=== PATIENT | female | born 1990 | race Caucasian/White ===

== ENCOUNTER 2017-12-19 19:06 | Emergency (ER) | payer BC ==
[2017-12-19 19:12] VITALS: BP 123/84
[2017-12-19] MEDS ORDERED: BENZONATATE 100 MG CAPSULE PO ONE (20:21)
--- NOTE | 2017-12-19 20:26 | ER Document Report ---
HPI - HPI Pain Level: 2 Context: Patient is a 27-year-old healthy female with history of seasonal allergies who presents to the emergency department complaining of sneezing, coughing, runny nose, sore throat 24 hours. No fever, shortness of breath or chest pain. No nausea or vomiting. Reports she is taking her prescribed allergy medications including Zyrtec and Flonase with no relief. Associated Symptoms: Nonproductive cough, Hoarseness Exacerbated by: Denies Relieved by: Denies Similar symptoms previously: Yes Recently seen / treated by doctor: No - ROS Systems Reviewed and Negative: Yes All other systems reviewed and negative - REPRODUCTIVE Reproductive: DENIES: : Past Medical History - General Information source: Patient - Social History Smoking Status: Never Smoker Frequency of alcohol use: Occasional Family History: Reviewed & Not Pertinent Patient has suicidal ideation: No Patient has homicidal ideation: No - Medical History Medical History: Other - Seasonal allergies Psychiatric Medical History: Reports: Hx Anxiety, Hx Depression Past Surgical History: Reports: Hx Oral Surgery - Immunizations Hx Diphtheria, Pertussis, Tetanus Vaccination: Yes Vertical Provider Document - CONSTITUTIONAL Agree With Documented VS: Yes Exam Limitations: No Limitations General Appearance: WD/WN, No Apparent Distress - INFECTION CONTROL TRAVEL OUTSIDE OF THE [place] IN LAST 30 DAYS: No COUNTRY TRAVELED TO/FROM: [facility] - [facility] HEENT: Atraumatic, PERRLA, Pharyngeal Tenderness, Pharyngeal Erythema. negative : Pharyngeal Exudate Notes: No trismus, drooling, muffled voice - NECK Neck: Normal Inspection, Supple - RESPIRATORY Respiratory: Breath Sounds Normal, No Respiratory Distress O2 Sat by Pulse Oximetry: 100 - CARDIOVASCULAR Cardiovascular: Regular Rate, Regular Rhythm - GI/ABDOMEN Gastrointestinal: Abdomen Soft, Abdomen Non-Tender - NEURO Level of Consciousness: Awake, Alert, Appropriate Course - Re-evaluation Re-evalutation: 12/19/17 20:25 History and physical are consistent with seasonal allergies and allergic rhinitis. There is no signs and symptoms of Jovi's angina, peritonsillar abscess, epiglottitis, respiratory distress, or sepsis. Recommend patient continue her antihistamines and I will treat cough symptomatically with Tessalon Perles. Patient agreeable with plan and stable for discharge - Vital Signs Vital signs: Temp Pulse Resp BP Pulse Ox 99.0 F 95 16 123/84 100 12/19/17 19:10 12/19/17 19:10 12/19/17 19:10 12/19/17 19:10 12/19/17 19:10 Discharge - Discharge Clinical Impression: Cough Allergic rhinitis Qualifiers: Allergic rhinitis trigger: pollen Allergic rhinitis seasonality: seasonal Qualified Code(s): J30.1 - Allergic rhinitis due to pollen Condition: Stable Disposition: HOME, SELF-CARE Instructions: Hay Fever ([facility]) Additional Instructions: Your symptoms are consistent with an exacerbation of your allergies. Continue with your current allergy medications as prescribed May add Sudafed to your current medications I am prescribing Tessalon Perles for your cough Lozenges and salt water gargles for symptomatic treatment of your sore throat Follow-up with your primary care for persistent symptoms or worsening of status Prescriptions: Benzonatate [Tessalon Perles 100 mg Capsule] 200 mg PO Q8HP PRN #40 capsule PRN Reason: Forms: Return to Work
== END 2017-12-19 20:20 | disposition home or self-care (01) ==
LOC: ER 19:06
DX: J30.1 Allergic rhinitis due to pollen (principal)
CPT/HCPCS: 99282

== ENCOUNTER 2017-12-22 10:58 | Emergency (ER) | payer BC ==
[2017-12-22] MEDS ORDERED: DEXAMETHASONE SOD PHOS INJ 10 MG/1 ML VIAL IM ONE (11:50)
--- NOTE | 2017-12-22 12:04 | ER Document Report ---
HPI - HPI Pain Level: 3 Notes: Patient is a 27-year-old female with a history of seasonal allergies who presents to the ED complaining of nasal congestion/discharge, postnasal drip, dry nonproductive cough 3 days. Patient was evaluated 2 days ago and was given Tessalon Perles and told to continue her seasonal allergy medications. Patient states that she has been using her medicines with no relief and continued symptoms. Patient requesting antibiotic. She denies any drug allergies. She still eating and drinking without difficulties. She is urinating normally having normal bowel movements. Denies any headache, fever, neck pain, sore throat, chest pain, palpitations, syncope, shortness of breath, wheeze, dyspnea, abdominal pain, nausea/vomiting/diarrhea, urinary retention, dysuria, hematuria, or rash. - ROS Systems Reviewed and Negative: Yes All other systems reviewed and negative - CONSTITUTIONAL Constitutional: DENIES: Fever, Chills - EENT EENT: REPORTS: Sore Throat. DENIES: Ear Pain, Eye problems - NEURO Neurology: DENIES: Headache, Weakness, Vision blurred, Dizzinesss / Vertigo - CARDIOVASCULAR Cardiovascular: DENIES: Chest pain - RESPIRATORY Respiratory: REPORTS: Coughing. DENIES: Trouble Breathing - GASTROINTESTINAL Gastrointestinal: DENIES: Abdominal Pain, Black / Bloody Stools - URINARY Urinary: DENIES: Dysuria, Urgency, Frequency - REPRODUCTIVE Reproductive: DENIES: : - MUSCULOSKELETAL Musculoskeletal: DENIES: Extremity pain Past Medical History - Social History Smoking Status: Unknown if Ever Smoked Chew tobacco use (# tins/day): No Frequency of alcohol use: Occasional Drug Abuse: None Family History: Reviewed & Not Pertinent Patient has suicidal ideation: No Patient has homicidal ideation: No Renal/ Medical History: Denies: Hx Peritoneal Dialysis Psychiatric Medical History: Reports: Hx Anxiety, Hx Depression Past Surgical History: Reports: Hx Oral Surgery - Immunizations Hx Diphtheria, Pertussis, Tetanus Vaccination: Yes Vertical Provider Document - CONSTITUTIONAL Agree With Documented VS: Yes Notes: PHYSICAL EXAMINATION: GENERAL: Well-appearing, well-nourished and in no acute distress. A&Ox4. Answers questions appropriately. Moves comfortably w/o notable distress HEAD: Atraumatic, normocephalic. EYES: Pupils equal round and reactive to light, extraocular movements intact, sclera anicteric, conjunctiva are normal. ENT: EAC clear b/l. TM's intact b/l without erythema, fluid, or perforation. Nares patent and with clear discharge. oropharynx no erythema without exudates. No tonsilar hypertrophy without erythema or exudate. No palatine shift. Uvula midline. No tongue protrusion. No drooling, hoarseness, or airway compromise. Moist mucous membranes. + mild sinus tenderness. NECK: Normal range of motion, supple without lymphadenopathy. No rigidity/ meningismus. LUNGS: Breath sounds clear to auscultation bilaterally and equal. No wheezes rales or rhonchi. No retractions HEART: Regular rate and rhythm without murmurs, rubs, gallops. NEUROLOGICAL: Normal speech, normal gait. Normal sensory, motor exams PSYCH: Normal mood, normal affect. SKIN: Warm, Dry, normal turgor, no rashes or lesions noted. - INFECTION CONTROL TRAVEL OUTSIDE OF THE [place] IN LAST 30 DAYS: No COUNTRY TRAVELED TO/FROM: [facility] - RESPIRATORY O2 Sat by Pulse Oximetry: 99 Course - Re-evaluation Re-evalutation: 12/22/17 12:01 Patient is an afebrile, well-hydrated, 27-year-old female who presents to the ED with acute URI, suspect viral. Vitals are acceptable. PE is otherwise unremarkable. No labs or imaging warranted at this time based on H&P. Patient' s lungs were clear to auscultation bilaterally. She has no significant tachycardia, no hypoxia, and no tachypnea. Patient has had symptoms for 3 days total now and is demanding an antibiotic and is not pleased with this facility and plans not to return in the future. Patient given a Decadron injection today. Advised that I believe this illness is viral and antibiotics are not warranted, but I will send her home with a pocket prescription of zithromax which she may begin after 3 days of continued or worsening symptoms and that will be written on the prescription itself. Conservative measures for symptoms otherwise. Recheck with your PCM in 3-5 days. Return to the ED with any worsening/concerning symptoms otherwise as reviewed discharge. Patient is in agreement. - Vital Signs Vital signs: Temp Pulse Resp BP Pulse Ox 97.9 F 87 18 111/81 99 12/22/17 11:00 12/22/17 11:00 12/22/17 11:00 12/22/17 11:12/22/17 11:00 Discharge - Discharge Clinical Impression: Acute URI Condition: Stable Disposition: HOME, SELF-CARE Instructions: Upper Respiratory Illness ([facility]) Additional Instructions: Maintain adequate fluid intake Take meds as directed tylenol/ibuprofen as needed over the counter cold medication as needed for symptoms Humidified air may help Wash your hands regularly Wear a mask when coughing F/u: with your PCM in 3-5 days for a recheck Return to the ED with any fever, worsening pain, chest pain, palpitations, syncope, worsening CARTWRIGHT, neck pain/stiffness, shortness of breath, wheezing, drooling, trouble swallowing/breathing, abdominal pain, n/v/d, rash, or worsening/concerning symptoms otherwise. Prescriptions: Azithromycin [Zithromax 250 mg Tablet] 250 mg PO ASDIR PRN #6 tablet PRN Reason: Referrals: [facility] [Provider Group] - Follow up as needed [facility] [Provider Group] - Follow up as needed
[2017-12-22 12:35] VITALS: BP 114/73
== END 2017-12-22 12:53 | disposition home or self-care (01) ==
LOC: ER 10:58
DX: J06.9 Acute upper respiratory infection, unspecified (principal); R09.81 Nasal congestion
CPT/HCPCS: 99283; 96372; J1100

== ENCOUNTER 2018-06-15 11:28 | Emergency (ER) | payer BC, MEDICAID ==
--- NOTE | 2018-06-15 12:07 | ER Document Report ---
ED Medical Screen (RME) - General Chief Complaint: Dizziness Stated Complaint: DIZZY/NAUSEA Time Seen by Provider: 06/15/18 11:50 Mode of Arrival: Ambulatory Information source: Patient, [facility] Records Notes: 27-year-old female at 29 weeks presents with complaint of 3 episodes of near syncope. Patient states that last night she was at a football game when she began sweating, became nauseous and had a blackening of her vision which caused her to sit herself on the floor. She denies loss of consciousness but reports 2 more similar episodes. Patient is currently being seen by [facility]. She has had an uneventful . Denies history of preeclampsia she denies any abdominal pain, vaginal bleeding, nausea, vomiting. She states I would not come in but "I know something is wrong". I have greeted and performed a rapid initial assessment of this patient. A comprehensive ED assessment and evaluation of the patient, analysis of test results and completion of medical decision making process we will be contacted by additional ED providers. General; well-appearing, no acute distress Respiratory; no respiratory distress Abdomen; gravid TRAVEL OUTSIDE OF THE [place] IN LAST 30 DAYS: No COUNTRY TRAVELED TO/FROM: [facility] - Related Data Allergies/Adverse Reactions: No Known Allergies Allergy (Verified 06/15/18 11:38) Past Medical History - Social History Chew tobacco use (# tins/day): No Frequency of alcohol use: None Drug Abuse: None Renal/ Medical History: Denies: Hx Peritoneal Dialysis Psychiatric Medical History: Reports: Hx Anxiety, Hx Depression Past Surgical History: Reports: Hx Oral Surgery - Immunizations Hx Diphtheria, Pertussis, Tetanus Vaccination: Yes Physical Exam - Vital signs Vitals: Temp Pulse Resp BP Pulse Ox 97.6 F 96 16 129/89 H 99 06/15/18 11:34 06/15/18 11:34 06/15/18 11:34 06/15/18 11:34 06/15/18 11:34 Course - Vital Signs Vital signs: Temp Pulse Resp BP Pulse Ox 97.6 F 96 16 129/89 H 99 06/15/18 11:34 06/15/18 11:34 06/15/18 11:34 06/15/18 11:34 06/15/18 11:34
--- NOTE | 2018-06-15 12:55 | ER Document Report ---
ED General - General Mode of Arrival: Ambulatory Information source: Patient TRAVEL OUTSIDE OF THE [place] IN LAST 30 DAYS: No COUNTRY TRAVELED TO/FROM: [place] <JANEL HAQ - Last Filed: 06/15/18 15:16> <FAYE EUGENE - Last Filed: 06/15/18 15:16> - General Chief Complaint: Dizziness Stated Complaint: DIZZY/NAUSEA Time Seen by Provider: 06/15/18 11:50 Notes: Patient is a 27-year-old female currently approximately 29 weeks presents to the emergency department complaining of nausea and multiple presyncopal episodes. Patient states last night she was at a football game when she felt like she became overheated, nauseous, dizzy, had tunnel vision and felt like she was going to pass out. Patient states that this happened one more time at the football game and again this morning while eating breakfast, all episodes happening suddenly. She states that she has not been able to vomit and has only been dry heaving. Patient denies any dysuria, hematuria, vaginal discharge. Patient mentions being "super sick" during her last . [facility] Patient is currently . (JANEL HAQ) - Related Data Allergies/Adverse Reactions: No Known Allergies Allergy (Verified 06/15/18 11:38) Past Medical History - General Information source: Patient, [facility] Records - Social History Smoking Status: Never Smoker Chew tobacco use (# tins/day): No Frequency of alcohol use: None Drug Abuse: None Family History: Reviewed & Not Pertinent Patient has suicidal ideation: No Patient has homicidal ideation: No Psychiatric Medical History: Reports: Hx Anxiety, Hx Depression Past Surgical History: Reports: Hx Oral Surgery - Immunizations Hx Diphtheria, Pertussis, Tetanus Vaccination: Yes <JANEL HAQ - Last Filed: 06/15/18 15:16> Review of Systems - Review of Systems Constitutional: No symptoms reported EENT: See HPI Cardiovascular: See HPI, Dizziness, Lightheaded Respiratory: No symptoms reported Gastrointestinal: See HPI, Nausea Genitourinary: No symptoms reported Female Genitourinary: See HPI, Musculoskeletal: No symptoms reported Skin: No symptoms reported Hematologic/Lymphatic: No symptoms reported Neurological/Psychological: No symptoms reported -: Yes All other systems reviewed and negative <JANEL HAQ - Last Filed: 06/15/18 15:16> Physical Exam <JANEL HAQ - Last Filed: 06/15/18 15:16> <KASHIFGEOFAYE - Last Filed: 06/15/18 15:16> - Vital signs Vitals: Temp Pulse Resp BP Pulse Ox 97.6 F 96 16 129/89 H 99 06/15/18 11:34 06/15/18 11:34 06/15/18 11:34 06/15/18 11:34 06/15/18 11:34 - Notes Notes: GENERAL: Alert, interacts well, appears anxious. No acute distress. HEAD: Normocephalic, atraumatic. EYES: Pupils equal, round, and reactive to light. Extraocular movements intact. ENT: Oral mucosa moist, tongue midline. NECK: Full range of motion. Supple. Trachea midline. LUNGS: Clear to auscultation bilaterally, no wheezes, rales, or rhonchi. No respiratory distress. HEART: Regular rate and rhythm. No murmurs, gallops, or rubs. ABDOMEN: Gravid, consistent with dates. Non tender to palpation. Bowel sounds present in all 4 quadrants. EXTREMITIES: Moves all 4 extremities spontaneously. NEUROLOGICAL: Alert and oriented x3. Normal speech. PSYCH: Appears anxious. SKIN: Warm, dry, normal turgor. No rashes or lesions noted. (JANEL HAQ) Course - Laboratory Result Diagrams: 06/15/18 12:25 06/15/18 12:25 <JANEL HAQ - Last Filed: 06/15/18 15:16> - Laboratory Result Diagrams: 06/15/18 12:25 06/15/18 12:25 <KASHIFGEOFAYE - Last Filed: 06/15/18 15:16> - Re-evaluation Re-evalutation: 06/15/18 14:39 CBC grossly unremarkable, CMP shows slight low sodium 136, slightly low CO2 at 21 otherwise unremarkable, urinalysis unremarkable with no signs of protein, dehydration or infection. EKG is unremarkable. Patient states she has had several other episodes of nausea during which her heart rate drops. I reviewed her rhythm strips and her monitor record and it shows that the lowest her heart rate has gone has been about 80 and the highest her heart rate is gone has been about 105 bpm. It is always a sinus mechanism. I suspect that the bouts of nausea are triggering a vagal response which is causing her heart rate to drop rather than the other way around. I did discuss the case with Dr. Rene, the RN SURGERY recreation officer, she states that this does not sound OB related and states that the patient does not need to come upstairs to be monitored on L&D. At this point the patient has been hydrated, I do not suspect symptomatic bradycardia, pulmonary embolism or acute intra-abdominal process. Patient will be discharged to home. Patient was warned that this could be the beginning of something larger that we are not seeing right now and she should return should she develop true syncope, vomiting, diarrhea or any new or concerning symptoms. (FAYE EUGENE) - Vital Signs Vital signs: Temp Pulse Resp BP Pulse Ox 97.6 F 89 14 113/82 100 06/15/18 11:34 06/15/18 14:54 06/15/18 14:54 06/15/18 14:54 06/15/18 14:54 - Laboratory Laboratory results interpreted by me: 06/15/18 06/15/18 12:25 12:25 Hct 35.7 L Seg Neutrophils % 79.7 H Lymphocytes % 12.1 L Sodium 136.1 L Carbon Dioxide 21 L Creatinine 0.50 L Glucose 118 H - EKG Interpretation by Me Additional EKG results interpreted by me: 06/15/18 14:41 EKG shows sinus rhythm rate 92, normal axis, normal intervals, no ST segment elevations or depressions, isolated T-wave inversions in lead III which are nonspecific per my interpretation. (FAYE EUGENE) Discharge <JANEL HAQ - Last Filed: 06/15/18 15:16> <FAYE EUGENE - Last Filed: 06/15/18 15:16> - Discharge Clinical Impression: Nausea, Near syncope, Third trimester at less than 36 weeks Condition: Stable Disposition: HOME, SELF-CARE Additional Instructions: Today there were no signs of heart attack, concerning delays on your EKG, concerning with a low heart rate, signs of infection or signs of significant dehydration. You may be at the beginning of a stomach bug. Should you develop new symptoms such as vomiting or diarrhea, worsening symptoms such as completely passing out or any related symptoms such as contractions or vaginal bleeding or fluid leaking from your vagina please return the emergency department. Near Syncopal Episode Syncope or near syncope (fainting or near-fainting) can occur from many different health problems. Or it can be a simple fainting spell requiring no treatment. It is safe for you to go home, but further evaluation will likely be necessary. Your work-up may include tests for internal bleeding, heart disease, medication problems, or near-strokes. Tests are not always required, however, depending on the nature of your problem. The warning signs of an impending faint include: dizziness, lightheadedness , nausea, hot flashes, tingling, and weakness. If this happens, lay down and put your feet up, then wait until all of these symptoms have passed before standing up again. If these episodes become recurrent, or if you develop chest pain, heart palpitations, mental confusion, blurred vision, or headache, then you should call the physician, or go to the emergency room. Referrals: RAFFI MEYER MD [ACTIVE STAFF] - Follow up as needed Scribe Attestation: 06/15/18 15:16 I personally performed the services described in the documentation, reviewed and edited the documentation which was dictated to the scribe in my presence, and it accurately records my words and actions. (FAYE EUGENE) Scribe Documentation - Scribe Written by Araseli:: Araseli Zepeda, 06/15/2018 12:56 acting as scribe for :: Lyle <JANEL HAQ - Last Filed: 06/15/18 15:16>
[2018-06-15 13:16] LABS: APPEARANCE,URINE SLIGHTLY-CLOUDY; BILIRUBIN,URINE NEGATIVE (NEGATIVE); COLOR,URINE STRAW; GLUCOSE, URINE NEGATIVE (NEGATIVE); KETONES,URINE NEGATIVE (NEGATIVE); LEUKOCYTE ESTERASE,URINE NEGATIVE (NEGATIVE); NITRITE,URINE NEGATIVE (NEGATIVE); PROTEIN,URINE NEGATIVE (NEGATIVE); URINE SPECIFIC GRAVITY 1.002; UROBILINOGEN,URINE NEGATIVE mg/dL (<2.0)
[2018-06-15 13:24] LABS: ABSOLUTE MONOCYTES (AUTO) 0.7 10^3/uL (0.1-1.4); ABSOLUTE NEUT (AUTO) 6.6 10^3/uL (1.7-8.2); BASOPHILS % (AUTO) 0.2 % (0-2); EOSINOPHILS % (AUTO) 0.1 % (0-6); HEMATOCRIT 35.7 % (36.0-47.0); HEMOGLOBIN 12.1 g/dL (12.0-15.5); LYMPHOCYTES % (AUTO) 12.1 % (13-45); MEAN CORPUSCULAR HEMOGLOBIN 30.7 pg (27.0-33.4); MEAN CORPUSCULAR HGB CONC 33.9 g/dL (32.0-36.0); MEAN CORPUSCULAR VOLUME 91 fl (80-97); MONOCYTES % (AUTO) 7.9 % (3-13); PLATELET COUNT 275 10^3/uL (150-450); RED BLOOD COUNT 3.94 10^6/uL (3.72-5.28); SEGMENTED NEUTROPHILS % (AUTO) 79.7 % (42-78); TOTAL CELLS COUNTED % (AUTO) 100 %; WHITE BLOOD COUNT 8.3 10^3/uL (4.0-10.5)
[2018-06-15 13:44] LABS: ALANINE AMINOTRANSFERASE 25 U/L (9-52); ALBUMIN 3.5 g/dL (3.5-5.0); ALKALINE PHOSPHATASE 67 U/L (38-126); ANION GAP 10 (5-19); ASPARTATE AMINO TRANSFERASE 24 U/L (14-36); BILIRUBIN,DIRECT 0.2 mg/dL (0.0-0.4); BILIRUBIN,TOTAL 0.3 mg/dL (0.2-1.3); BLOOD UREA NITROGEN 12 mg/dL (7-20); CALCIUM 9.2 mg/dL (8.4-10.2); CARBON DIOXIDE 21 mmol/L (22-30); CHLORIDE 105 mmol/L (98-107); GLUCOSE 118 mg/dL (75-110); SODIUM 136.1 mmol/L (137-145); TOTAL PROTEIN 6.4 g/dL (6.3-8.2)
[2018-06-15 14:55] VITALS: BP 113/82
--- NOTE | 2018-06-15 15:29 | EKG REPORT ---
SEVERITY:- NORMAL ECG - SINUS RHYTHM : Confirmed by: Mike Sweeney MD 15-Jun-2018 15:28:59
== END 2018-06-15 14:54 | disposition home or self-care (01) ==
LOC: ER 11:28
DX: O26.893 Other specified pregnancy related conditions, third trimester (principal); R55 Syncope and collapse; R11.0 Nausea; Z3A.00 Weeks of gestation of pregnancy not specified
CPT/HCPCS: 36415; 80053; 81001; 85025; 93005; 93010; 99284

== ENCOUNTER 2018-08-26 21:38 | Outpatient (CLI) | payer BC, MEDICAID ==
[2018-08-26 22:05] LABS: APPEARANCE,URINE CLOUDY; BILIRUBIN,URINE NEGATIVE (NEGATIVE); COLOR,URINE YELLOW; GLUCOSE, URINE NEGATIVE (NEGATIVE); KETONES,URINE NEGATIVE (NEGATIVE); LEUKOCYTE ESTERASE,URINE SMALL (NEGATIVE); NITRITE,URINE NEGATIVE (NEGATIVE); PROTEIN,URINE NEGATIVE (NEGATIVE); URINE SPECIFIC GRAVITY 1.009; UROBILINOGEN,URINE NEGATIVE mg/dL (<2.0)
[2018-08-26 22:20] LABS: URINE AMPHETAMINES SCREEN NEGATIVE; URINE BARBITURATES SCREEN NEGATIVE; URINE BENZODIAZEPINES SCREEN NEGATIVE; URINE COCAINE SCREEN NEGATIVE; URINE MARIJUANA (THC) SCREEN NEGATIVE; URINE METHADONE SCREEN NEGATIVE; URINE PHENCYCLIDINE SCREEN NEGATIVE
--- NOTE | 2018-08-26 22:52 | Non Stress Test Report ---
Non Stress Test Datetime Report Generated by CPN: 08/26/2018 22:52 DEMOGRAPHIC Test Number: 1 EGA NST: 40.0 INDICATION Indication for Study: Ordered by Provider MONITORING Monitor Explained: Monitor Explained; Test Explained; Patient Verbalized Understanding Time on Monitor: 08/26/2018 21:56 Time off Monitor: 08/26/2018 22:45 NST Duration: 49 NST INTERVENTIONS NST Interventions: PO Hydration; Reposition Patient Physician Notified NST: Dr. Ariel BABY A: [id number] BABY A Movement : Present Contraction Frequency : irregular FHR Baseline : 135 Accelerations : 15X15 Decelerations : None Variability : Moderate 6-25bpm NST Review: Meets Criteria for Reactive NST NST Review and Verified By : PRIYA Wade Results: Reactive NST REPORT Report Trigger: Send Report
== END 2018-08-26 22:52 | disposition home or self-care (01) ==
LOC: LC 21:38
PROVIDERS: ATTEND Obstetrics & Gynecology
PROC: 4A1HXCZ Monitoring of Products of Conception, Cardiac Rate, External Approach (ICD-10-PCS; principal; 2018-08-26)
DX: O47.1 False labor at or after 37 completed weeks of gestation (principal); O48.0 Post-term pregnancy; Z3A.40 40 weeks gestation of pregnancy
CPT/HCPCS: 59025; 80307; 81005; 84112

== ENCOUNTER 2018-08-28 06:25 | Inpatient (IN) | payer BC, MEDICAID ==
[2018-08-28] MEDS ORDERED: RINGERS SOLUTION,LACTATED 300 ML IV ONE (06:44)
[2018-08-28] MEDS ORDERED: RINGERS SOLUTION,LACTATED 1,000 ML IV PRN (06:44)
[2018-08-28] MEDS ORDERED: OXYTOCIN/NORMAL SALINE 20 UNIT/1,000 ML RTUINJ IV PRN ×2 (06:44→14:28)
[2018-08-28 07:18] LABS: ABSOLUTE LYMPHOCYTES (AUTO) 1.1 10^3/uL (0.5-4.7); ABSOLUTE MONOCYTES (AUTO) 0.7 10^3/uL (0.1-1.4); ABSOLUTE NEUT (AUTO) 7.6 10^3/uL (1.7-8.2); BASOPHILS % (AUTO) 0.3 % (0-2); EOSINOPHILS % (AUTO) 0.1 % (0-6); HEMATOCRIT 32.6 % (36.0-47.0); HEMOGLOBIN 11.2 g/dL (12.0-15.5); LYMPHOCYTES % (AUTO) 11.9 % (13-45); MEAN CORPUSCULAR HGB CONC 34.5 g/dL (32.0-36.0); MEAN CORPUSCULAR VOLUME 87 fl (80-97); PLATELET COUNT 283 10^3/uL (150-450); RED BLOOD COUNT 3.75 10^6/uL (3.72-5.28); RED CELL DISTRIBUTION WIDTH 13.2 % (11.5-14.0); SEGMENTED NEUTROPHILS % (AUTO) 80.7 % (42-78); TOTAL CELLS COUNTED % (AUTO) 100 %; WHITE BLOOD COUNT 9.4 10^3/uL (4.0-10.5)
[2018-08-28] MEDS ORDERED: OXYTOCIN/NORMAL SALINE 20 UNIT/1,000 ML RTUINJ ONE ×2 (07:37→08:40)
[2018-08-28 08:03] LABS: APPEARANCE,URINE CLOUDY; BILIRUBIN,URINE SMALL (NEGATIVE); COLOR,URINE AMBER; GLUCOSE, URINE NEGATIVE (NEGATIVE); KETONES,URINE TRACE mg/dL (NEGATIVE); LEUKOCYTE ESTERASE,URINE LARGE (NEGATIVE); NITRITE,URINE NEGATIVE (NEGATIVE); PROTEIN,URINE 100 mg/dL (NEGATIVE); URINE SPECIFIC GRAVITY 1.036
[2018-08-28 08:10] LABS: URINE AMPHETAMINES SCREEN NEGATIVE; URINE BARBITURATES SCREEN NEGATIVE; URINE BENZODIAZEPINES SCREEN NEGATIVE; URINE COCAINE SCREEN NEGATIVE; URINE MARIJUANA (THC) SCREEN NEGATIVE; URINE METHADONE SCREEN NEGATIVE; URINE PHENCYCLIDINE SCREEN NEGATIVE
--- NOTE | 2018-08-28 08:34 | Admission Physical ---
Datetime Report Generated by CPN: 08/28/2018 08:34 CURRENT ADMISSION Chief Complaint: Scheduled Induction of Labor Indication for Induction: Not Applicable Indication for Induction- Other: Elective over 40 wks, favorable Admit Impression : No Active Labor Admit Plan: Admit to Unit; Initiate Labor Induction Protocol ALLERGIES Medication Allergies: No Medication Allergies: No Known Allergies (08/26/2018) Latex: No Latex Allergies OBSTETRICAL HISTORY EDC: 08/26/2018 00:00 : 2 Para: 1 Term: 1 : 0 SAB: 0 IAB: 0 Ectopic: 0 Livin Cesareans: 0 VBACs: 0 Multiple Births: 0 Gestational Diabetes: No Rh Sensitization: No Incompetent Cervix: No BILL: No Infertility: No ART Treatment: No Uterine Anomaly: No IUGR: No Hx Previous C/S: No Macrosomia: No Hx Loss/Stillborn: No PIH: No Hx : No Placenta Previa/Abruption: No Depression/PP Depression: No PTL/PROM: No Post Hemorrhage: No Current Procedures: Ultrasound; NST Obstetrical History Comments: female 7lbs 1oz G- Current SEE RECORDS Alcohol: No Marijuana : No Cocaine: No Other Illicit Drugs: No Cigarettes: Never Smoker. [id number] MEDICAL HISTORY Diabetes: No Blood Transfusion: No Pulmonary Disease (Asthma, TB): No Breast Disease: No Hypertension: No Senior [id number] Surgery: No Heart Disease: No Hosp/Surgery: No Autoimmune Disorder: No Anesthetic Complications: No Kidney Disease: No Abnormal Pap Smear: Yes Neuro/Epilepsy: No Psychiatric Disorders: Yes Other Medical Diseases: No Hepatitis/Liver Disease: No Significant Family History: No Varicosities/Phlebitis: No Trauma/Violence : No Thyroid Dysfunction: No Medical History Comments: Hx depression, anxiety-no meds; suicide attempt x2 last attempt 2013, abnormal pap-ASCUS w/HRHPV INFECTIOUS HISTORY Gonorrhea: No Genital Herpes: No Chlamydia: No Tuberculosis: No Syphilis: No Hepatitis: No HIV/AIDS Exposure: No Rash or Viral Illness: No HPV: Yes Infectious History Comments: ASCUS w/HRHPV PHYSICAL EXAM General: Normal HEENT: Deferred Neurologic: Normal Thyroid: Deferred Heart: Normal Lungs: Normal Breast: Deferred Back: Deferred Abdomen: Normal Genitourinary Exam: Normal Extremities: Normal DTRs: Deferred Pelvic Type: Adequate Vital Signs: Reviewed VAGINAL EXAM Dilatation: 3 Effacement: 60 Station: -2 MEMBRANES Membranes: Ruptured Amniotic Fluid Color: Clear FETUS A EGA: 40.2 Monitoring: External US FHR- Baseline: 135 Variability: Moderate 6-25bpm Accelerations: 15X15 FHR Category: Category I Presentation: Vertex Admit Comment: no complaints or concerns, benign PN hx GBS neg PLANS FOR LABOR AND DELIVERY Labor and Delivery: None Pain Management: Medications; Epidural Feeding Preference: Breast Benefit of Breast Feed Discussed: Yes Circumcision: N/A INFORMED CONSENT Assignment: Nathaly Greene MD Signature: with User ID: [email or web address] : with User ID: [email or web address]
[2018-08-28] MEDS ORDERED: LIDOCAINE 1% INJ-PF (10 MG/ML) 30 ML SDV ONE (08:39)
[2018-08-28] MEDS ORDERED: OXYTOCIN 10 UNIT/ML VIAL ONE (08:39)
[2018-08-28] MEDS ORDERED: MISOPROSTOL 0.2 MG TABLET ONE (08:39)
[2018-08-28] MEDS ORDERED: EPHEDRINE SULFATE INJ 50 MG/1 ML AMPULE ONE (09:41)
[2018-08-28] MEDS ORDERED: BUPIVACAINE HCL 0.5 % INJ/PF 30 ML SDV ONE (09:42)
[2018-08-28] MEDS ORDERED: FENTANYL/BUPIVACAINE/NS/PF 300 MCG/150 ML RTUINJ EPI ONE (09:42)
[2018-08-28] MEDS ORDERED: DIBUCAINE 1% OINTMENT 28 GM TP PRN (14:28)
[2018-08-28] MEDS ORDERED: MEASLES,MUMPS&RUBELLA VACC/PF 0.5 ML VIAL SUBCUT PRN (14:28)
[2018-08-28] MEDS ORDERED: DIPH/PERTUSS(ACELL)/TETANUS VAC/PF 0.5 ML SYR (>=10YO) IM PRN (14:28)
[2018-08-28] MEDS ORDERED: BENZOCAINE/MENTHOL AEROSOL SPRAY 56 ML TOP PRN (14:28)
[2018-08-28] MEDS ORDERED: ZOLPIDEM TARTRATE 5 MG TABLET PO PRN (14:28)
[2018-08-28] MEDS ORDERED: ACETAMINOPHEN WITH CODEINE #3 TABLET PO PRN (14:28)
--- NOTE | 2018-08-28 15:07 | Delivery Summary ---
Del Sum A-C Datetime Report Generated by CPN: 08/28/2018 15:06 DELIVERY PERSONNEL DELIVERY PERSONNEL: [id number] Delivery Doctor:: Tomasa Segovia CNM Labor and Delivery Nurse:: Tanya Rosado RNcable engineer Nurse:: Mague Meyers RN Nursery Nurse:: Suzette Carty RN- after delivery Home Therapy Clinician/UPSETTER HELPER: Luz Hobbs UPSETTER HELPER II MATERNAL INFORMATION Delivery Anesthesia: Epidural Medications After Delivery: Pitocin Bolus-Please Comment; Pitocin Drip 20 Units/1000ml NSS Maternal Complications: None Provider Comments: SVDVF over intact perineum PRASAD, loose nuchal cord reduced, ant shoulder delivered after 1 min with Ann and suprapubic pressure. Terminal meconium noted, mouth suctioned with bulb, to mothers abd, vigorous, appears to be moving both arms. Placenta intact via hanson, spontaneous. 3VC noted. Bleeding minimal. No lacerations. Mother and stable. wt 8lb 4oz LABOR SUMMARY EDC: 08/26/2018 00:00 No. Babies in Womb: 1 Attempted: No Labor Anesthesia: Epidural LABOR INFORMATION Reason for Induction: Other Reason for Induction- Other: ELECTIVE Onset of Labor: 08/28/2018 12:00 Complete Dilatation: 08/28/2018 12:44 Oxytocin: Induction Group B Beta Strep: Negative Antibiotics # of Doses: 0 Steroids Given: None Reason Steroids Not Administered: Not Applicable MEMBRANES Membranes Rupture Method: Artificial Rupture of Membranes: 08/28/2018 08:19 Length of Rupture (hr): 4.77 Amniotic Fluid Color: Clear Amniotic Fluid Amount: Scant Amniotic Fluid Odor: Normal STAGES OF LABOR Stage 1 hr: 0 Stage 1 min: 44 Stage 2 hr: 0 Stage 2 min: 21 Stage 3 hr: 0 Stage 3 min: 5 Total Time in Labor hr: 1 Total Time in Labor min: 10 VAGINAL DELIVERY Episiotomy: None Laceration #1: None Laceration Extension #1: N/A Laceration Repair: Not Applicable Laceration Repair Note: none needed Sponge Count Correct: N/A Sharps Count Correct: N/A CSECTION DELIVERY Labor: No Labor BABY A INFORMATION Delivery Date/Time: 08/28/2018 13:05 Method of Delivery: Vaginal Born in Route : No : N/A Forceps: N/A Vacuum Extraction: N/A Shoulder Dystocia : Yes SHOULDER DYSTOCIA BABY A Delivery of Head: 08/28/2018 13:04 Time Head to Delivery : 1.0 1st Intervention to Resolve: McRobert's Maneuver 2nd Intervention to Resolve: Suprapubic Pressure Verify NO Fundal Pressure: No Fundal Pressure Applied PRESENTATION/POSITION BABY A Presentation: Cephalic Cephalic Presentation: Vertex Vertex Position: Left Occipital Anterior Breech Presentation: N/A PLACENTA INFORMATION BABY A Placenta Delivery Time : 08/28/2018 13:10 Placenta Method of Delivery: Spontaneous Placenta Status: Delivered SCORES BABY A Heart Rate 1 min: >100 bpm Resp Effort 1 min: Slow, Irregular Reflex Irritability 1 min: Cough or Sneeze or Pulls Away Muscle Tone 1 min: Active Motion Color 1 min: Body Vernal, Extremities Blue Resuscitation Effort 1 min: Tactile Stimulation SCORE 1 MIN: 8 Heart Rate 5 min: >100 bpm Resp Effort 5 min: Good Cry Reflex Irritability 5 min: Cough or Sneeze or Pulls Away Muscle Tone 5 min: Active Motion Color 5 min: Body Vernal, Extremities Blue Resuscitation Effort 5 min: Tactile Stimulation SCORE 5 MIN: 9 INFORMATION BABY A Gestational Age at Delivery: 40.2 Gestational Status: Full Term- 39- 40.6 Weeks Infant Outcome : Liveborn Condition : Stable Sex: Female IDENTIFICATION BABY A Infant Verification Date/Time: 08/28/2018 13:37 ID Band Number: [id number] Mother's Name Verified: Yes Infant RN Verifying Infant: PRIYA Marroquin Additional Verifying Personnel: Lorrie Meyers RN WEIGHT/LENGTH BABY A Birthweight (gm): 3740 Weight (lb): 8 Weight (oz): 4 Infant Length (in): 21.00 Length (cm): 53.34 CORD INFORMATION BABY A No. Cord Vessels: 3 Nuchal Cord : Around Neck x1, Loose Cord Blood Taken: Yes-For Storage (Mom's Blood type +) Suction: Mouth ASSESSMENT BABY A Infant Complications: Shoulder Dystocia; Other Complications- Other: terminal meconium Skin to Skin: Yes Skin to Skin Time (min): 20 BABY B INFORMATION : N/A SIGNATURES Assignment: Nathaly Greene MD Signature: with User ID: [email or web address] : with User ID: [email or web address] : I was personally available for consultation and serving as supervising physician for the P.
[2018-08-28] MEDS: ACETAMINOPHEN WITH CODEINE #3 TABLET PO PRN ×2 (16:03→21:04)
[2018-08-28] MEDS: FERROUS SULFATE 325 MG TABLET PO SCH (17:45)
[2018-08-28] MEDS: DOCUSATE SODIUM 100 MG CAPSULE PO SCH (17:45)
[2018-08-28] MEDS: IBUPROFEN 800 MG TABLET PO SCH (21:56)
[2018-08-29] MEDS: IBUPROFEN 800 MG TABLET PO SCH ×3 (05:19→21:25)
--- NOTE | 2018-08-29 10:18 | PDOC PROGRESS REPORT ---
Subjective-OB Progress Note for:: 08/29/18 Subjective: reports bleeding not slowing, pain controlled with current meds, no needs expressed, discussed implications of shoulder dystocia Physical Exam (OB) Vital Signs: Temp Pulse Resp BP Pulse Ox 98 F 100 18 112/71 99 08/29/18 08:25 08/29/18 08:25 08/29/18 08:25 08/29/18 08:25 08/29/18 08:25 Intake & Output 08/28/18 08/29/18 08/30/18 06:59 06:59 06:59 Weight 52.7 kg - Lochia Lochia Amount: Scant < 10 ml Lochia Color: Rubra/Red - Abdomen Description: Soft Hernia Present: No Fundal Description: Firm, Midline Fundal Height: u/u - u/2 - was above U, pt voided, firmed with fundal rub, RN present - Abdominal Inspection: Normal Distension: No distension Tenderness: Nontender - Extremities Lower extremities: Fadia's sign - neg Calf: Normal, Nontender Objective-Diagnostic Laboratory: 08/28/18 07:03 Assessment and Plan(PN) - Assessment and Plan (1) Shoulder dystocia during labor and delivery Is this a current diagnosis for this admission?: Yes (2) Vaginal delivery Is this a current diagnosis for this admission?: Yes - Time Spent with Patient Time with patient: Less than 15 minutes Medications reviewed and adjusted accordingly: Yes - Disposition Anticipated Discharge: Home Within: within 24 hours
[2018-08-29] MEDS: DOCUSATE SODIUM 100 MG CAPSULE PO SCH ×2 (10:44→17:27)
[2018-08-29] MEDS: PRENATAL VITAMIN W DHA CAPSULE PO SCH (10:44)
[2018-08-29] MEDS: FERROUS SULFATE 325 MG TABLET PO SCH ×2 (10:45→17:27)
[2018-08-29] MEDS: SENNOSIDES/DOCUSATE 8.6-50 MG 1 EACH TABLET PO SCH (10:45)
[2018-08-29 13:18] LABS: ABSOLUTE LYMPHOCYTES (AUTO) 1.5 10^3/uL (0.5-4.7); ABSOLUTE MONOCYTES (AUTO) 0.6 10^3/uL (0.1-1.4); ABSOLUTE NEUT (AUTO) 8.3 10^3/uL (1.7-8.2); BASOPHILS % (AUTO) 0.1 % (0-2); EOSINOPHILS % (AUTO) 0.1 % (0-6); HEMATOCRIT 33.2 % (36.0-47.0); HEMOGLOBIN 11.3 g/dL (12.0-15.5); LYMPHOCYTES % (AUTO) 13.9 % (13-45); MEAN CORPUSCULAR HGB CONC 33.9 g/dL (32.0-36.0); MEAN CORPUSCULAR VOLUME 89 fl (80-97); MONOCYTES % (AUTO) 6.1 % (3-13); PLATELET COUNT 330 10^3/uL (150-450); RED BLOOD COUNT 3.75 10^6/uL (3.72-5.28); RED CELL DISTRIBUTION WIDTH 13.4 % (11.5-14.0); SEGMENTED NEUTROPHILS % (AUTO) 79.8 % (42-78); TOTAL CELLS COUNTED % (AUTO) 100 %; WHITE BLOOD COUNT 10.5 10^3/uL (4.0-10.5)
[2018-08-29] MEDS: ACETAMINOPHEN WITH CODEINE #3 TABLET PO PRN (21:28)
[2018-08-30] MEDS: IBUPROFEN 800 MG TABLET PO SCH (05:02)
[2018-08-30] MEDS ORDERED: NORMAL SALINE 250 ML IV PRN (08:41)
[2018-08-30] MEDS: FERROUS SULFATE 325 MG TABLET PO SCH (09:50)
[2018-08-30] MEDS: SENNOSIDES/DOCUSATE 8.6-50 MG 1 EACH TABLET PO SCH (09:50)
[2018-08-30] MEDS: DOCUSATE SODIUM 100 MG CAPSULE PO SCH (09:50)
[2018-08-30] MEDS: PRENATAL VITAMIN W DHA CAPSULE PO SCH (09:50)
--- NOTE | 2018-08-30 11:04 | PDOC DISCHARGE SUMMARY ---
Final Diagnosis Discharge Date: 08/30/18 - Final Diagnosis (1) Shoulder dystocia during labor and delivery Is this a current diagnosis for this admission?: Yes (2) Vaginal delivery Is this a current diagnosis for this admission?: Yes Discharge Data - Discharge Medication Prescriptions: Ibuprofen [Motrin 800 mg Tablet] 800 mg PO Q8HP PRN #60 tablet PRN Reason: Home Medications: Vit Calc,Iron,Folic [ Vitamins] 1 each PO DAILY 06/15/18 Ibuprofen [Motrin 800 mg Tablet] 800 mg PO Q8HP PRN #60 tablet 08/30/18 Procedures: NST Intrapartum Procedure(s): Spontaneous Vaginal Delivery - Diagnosis Test Laboratory: Temp Pulse Resp BP Pulse Ox 98.1 F 75 18 115/77 98 08/30/18 07:44 08/30/18 07:44 08/30/18 07:44 08/30/18 07:44 08/30/18 07:44 08/28/18 08/28/18 08/29/18 06:30 07:03 12:45 RBC 3.75 3.75 Hgb 11.2 L 11.3 L Hct 32.6 L 33.2 L Urine Opiates Screen NEGATIVE - Discharge information/Instructions Discharge Activity: Balance Activity w/Rest, Pelvic Rest Discharge Diet: Regular Disposition: HOME, SELF-CARE Follow up with: [facility] in: 4, Weeks
[2018-08-30 11:22] VITALS: BP 112/71
== END 2018-08-30 12:25 | disposition home or self-care (01) | DRG 807 ==
LOC: LR 06:25 → 2S 15:11
PROVIDERS: ADMIT Obstetrics & Gynecology; ATTEND Obstetrics & Gynecology
PROC: 10E0XZZ Delivery of Products of Conception, External Approach (ICD-10-PCS; principal; 2018-08-28)
PROC: 3E033VJ Introduction of Other Hormone into Peripheral Vein, Percutaneous Approach (ICD-10-PCS; 2018-08-28)
PROC: 10907ZC Drainage of Amniotic Fluid, Therapeutic from Products of Conception, Via Natural or Artificial Opening (ICD-10-PCS; 2018-08-28)
PROC: 4A1HXCZ Monitoring of Products of Conception, Cardiac Rate, External Approach (ICD-10-PCS; 2018-08-28)
DX: O66.0 Obstructed labor due to shoulder dystocia (principal); Z37.0 Single live birth; O69.81X0 Labor and delivery complicated by cord around neck, without compression, not applicable or unspecified; Z3A.40 40 weeks gestation of pregnancy
CPT/HCPCS: 36415; 80307; 81005; 85025; 86592; 86850; 86900; 86901; J2590; J3010; J3490

== ENCOUNTER 2019-08-04 12:57 | Emergency (ER) | payer BC, MEDICAID ==
[2019-08-04 13:01] VITALS: BP 124/76
[2019-08-04] MEDS ORDERED: NORMAL SALINE 1000 ML 1,000 ML IV ONE (13:34)
[2019-08-04] MEDS ORDERED: KETOROLAC TROMETHAMINE INJ/PF 30 MG/1 ML SDV IV ONE (13:35)
--- NOTE | 2019-08-04 13:37 | ER Document Report ---
ED Medical Screen (RME) - General Chief Complaint: Low Back Pain Stated Complaint: BILATERAL FLANK PAIN Time Seen by Provider: 08/04/19 13:31 Notes: Patient is a 28-year-old female who presents to the emergency department with a chief complaint of bilateral flank pain. Patient started to have some dysuria 3 days ago. She also had some urgency at that time. Patient states that her dysuria evolved into bilateral flank pain. Patient states that she has felt feverish, but has not had a fever. Exam: CVA tenderness bilaterally. I have greeted and performed a rapid initial assessment of this patient. A comprehensive ED assessment and evaluation of the patient, analysis of test results and completion of medical decision making process will be conducted by an additional ED providers. TRAVEL OUTSIDE OF THE [place] IN LAST 30 DAYS: No - Related Data Allergies/Adverse Reactions: No Known Allergies Allergy (Verified 08/26/18 22:16) Past Medical History - Social History Chew tobacco use (# tins/day): No Frequency of alcohol use: Occasional Drug Abuse: None Renal/ Medical History: Denies: Hx Peritoneal Dialysis Psychiatric Medical History: Reports: Hx Anxiety, Hx Depression Past Surgical History: Reports: Hx Oral Surgery - Immunizations Hx Diphtheria, Pertussis, Tetanus Vaccination: Yes Physical Exam - Vital signs Vitals: Temp Pulse Resp BP Pulse Ox 98.6 F 104 H 18 124/76 97 08/04/19 13:01 08/04/19 13:01 08/04/19 13:01 08/04/19 13:01 08/04/19 13:01 Course - Vital Signs Vital signs: Temp Pulse Resp BP Pulse Ox 98.6 F 104 H 18 124/76 97 08/04/19 13:01 08/04/19 13:01 08/04/19 13:01 08/04/19 13:01 08/04/19 13:01
[2019-08-04 14:01] LABS: ABSOLUTE LYMPHOCYTES (AUTO) 0.9 10^3/uL (0.5-4.7); ABSOLUTE MONOCYTES (AUTO) 0.8 10^3/uL (0.1-1.4); ABSOLUTE NEUT (AUTO) 10.7 10^3/uL (1.7-8.2); BASOPHILS % (AUTO) 0.3 % (0-2); HEMATOCRIT 39.6 % (36.0-47.0); HEMOGLOBIN 13.2 g/dL (12.0-15.5); LYMPHOCYTES % (AUTO) 7.5 % (13-45); MEAN CORPUSCULAR HGB CONC 33.2 g/dL (32.0-36.0); MEAN CORPUSCULAR VOLUME 90 fl (80-97); MONOCYTES % (AUTO) 6.4 % (3-13); PLATELET COUNT 347 10^3/uL (150-450); RED BLOOD COUNT 4.39 10^6/uL (3.72-5.28); RED CELL DISTRIBUTION WIDTH 12.8 % (11.5-14.0); SEGMENTED NEUTROPHILS % (AUTO) 85.8 % (42-78); TOTAL CELLS COUNTED % (AUTO) 100 %; WHITE BLOOD COUNT 12.5 10^3/uL (4.0-10.5)
[2019-08-04 14:21] LABS: APPEARANCE,URINE CLOUDY; BILIRUBIN,URINE NEGATIVE (NEGATIVE); COLOR,URINE YELLOW; GLUCOSE, URINE NEGATIVE (NEGATIVE); KETONES,URINE NEGATIVE (NEGATIVE); PROTEIN,URINE 30 mg/dL (NEGATIVE); URINE SPECIFIC GRAVITY 1.003; UROBILINOGEN,URINE NEGATIVE mg/dL (<2.0)
[2019-08-04 14:23] LABS: ALBUMIN 4.2 g/dL (3.5-5.0); ALKALINE PHOSPHATASE 73 U/L (38-126); ANION GAP 11 (5-19); ASPARTATE AMINO TRANSFERASE 23 U/L (14-36); BILIRUBIN,TOTAL 0.4 mg/dL (0.2-1.3); BLOOD UREA NITROGEN 10 mg/dL (7-20); CALCIUM 9.3 mg/dL (8.4-10.2); CARBON DIOXIDE 24 mmol/L (22-30); CHLORIDE 105 mmol/L (98-107); GLUCOSE 90 mg/dL (75-110); POTASSIUM 3.7 mmol/L (3.6-5.0); TOTAL PROTEIN 7.1 g/dL (6.3-8.2)
--- NOTE | 2019-08-04 15:02 | ER Document Report ---
ED General - General Chief Complaint: Low Back Pain Stated Complaint: BILATERAL FLANK PAIN Time Seen by Provider: 08/04/19 13:31 Notes: Patient is a 28-year-old female who presents to the emergency department with a chief complaint of bilateral flank pain. Patient started to have some dysuria 3 days ago. She also had some urgency at that time. Patient states that her dysuria evolved into bilateral flank pain. Patient states that she has felt feverish, but has not had a fever. TRAVEL OUTSIDE OF THE [place] IN LAST 30 DAYS: No - Related Data Allergies/Adverse Reactions: No Known Allergies Allergy (Verified 08/26/18 22:16) Past Medical History - Social History Smoking Status: Never Smoker Chew tobacco use (# tins/day): No Frequency of alcohol use: Occasional Drug Abuse: None Family History: Reviewed & Not Pertinent Patient has suicidal ideation: No Patient has homicidal ideation: No Renal/ Medical History: Denies: Hx Peritoneal Dialysis Psychiatric Medical History: Reports: Hx Anxiety, Hx Depression Past Surgical History: Reports: Hx Oral Surgery - Immunizations Hx Diphtheria, Pertussis, Tetanus Vaccination: Yes Review of Systems - Review of Systems Notes: REVIEW OF SYSTEMS: CONSTITUTIONAL : Denies recent illness. Denies recent unintentional weight loss. Denies fever, chills, or sweats. EENT: Denies eye, ear, throat, or mouth pain, discharge, or symptoms. Denies nasal or sinus congestion. CARDIOVASCULAR: Denies chest pain. RESPIRATORY: Denies shortness of breath, cough, congestion, difficulty breathing, or wheezing. GASTROINTESTINAL: Denies nausea, vomiting, and diarrhea. Denies abdominal pain. Denies constipation. GENITOURINARY: See HPI. MUSCULOSKELETAL: See HPI. Denies joint pain or swelling. SKIN: Denies rash, itchiness, or lesions HEMATOLOGIC : Denies easy bruising or bleeding. LYMPHATIC: Denies swollen, painful, enlarged glands. NEUROLOGICAL: Denies no numbness or tingling denies weakness. Denies headache. Denies altered mental status. Denies alteration in speech. PSYCHIATRIC: Denies stress, anxiety, alteration in sleep patterns, or depression. All other systems reviewed and negative. Physical Exam - Vital signs Vitals: Temp Pulse Resp BP Pulse Ox 98.6 F 104 H 18 124/76 97 08/04/19 13:01 08/04/19 13:01 08/04/19 13:01 08/04/19 13:01 08/04/19 13:01 - Notes Notes: PHYSICAL EXAMINATION: GENERAL: Appears well, healthy, well-nourished, no acute distress. HEAD: Normocephalic, atraumatic. EYES: PERRL, conjunctiva normal, all extraocular movements intact, sclera nonic teric ENT: Moist mucous membranes. NECK: Supple, no noticeable swelling, redness, rash. Normal range of motion. LUNGS: Equal breath sounds bilaterally and clear to auscultation. No wheezes rales or rhonchi. CARDIOVASCULAR: S1-S2, regular rate, regular rhythm. Radial pulses 2+, normal. ABDOMEN: Normoactive bowel sounds. Soft, mildly tender mid lower abdomen, no guarding, no rebound tenderness, and no masses palpated. EXTREMITIES: Normal strength and range of motion, no pitting or edema. No cyanosis. NEUROLOGICAL: Moves all extremities upon command. Strength 5/5 in all extremiti es. PSYCH: Normal mood, normal affect. SKIN: Warm, dry. No rash, lesions, ulcerations noted. Normal skin turgor. BACK: Bilateral CVA tenderness. Course - Re-evaluation Re-evalutation: 08/04/19 Patient has a mild leukocytosis of 12,500. Her chemistries are unremarkable and her serum hCG is negative. Urinalysis shows a large amount of leukocytes and a small amount of blood, consistent with the patient having a urinary tract infection. I have very low suspicion for an infected kidney stone, bacterial vaginosis, pelvic inflammatory disease, or any life-threatening etiology at this time. Patient's vital signs are normal at discharge. Patient states that she feels somewhat better after receiving IV fluids. Patient will be discharged with Keflex. Urine culture has been sent. Patient will follow-up with her primary care provider. Follow-up precautions were given. Verbal discharge instructions were given to the patient. They verbalized understanding. They are stable for discharge. - Vital Signs Vital signs: Temp Pulse Resp BP Pulse Ox 98.6 F 98 18 124/76 98 08/04/19 15:10 08/04/19 15:10 08/04/19 15:10 08/04/19 15:10 08/04/19 15:10 - Laboratory Result Diagrams: 08/04/19 13:51 08/04/19 13:51 Laboratory results interpreted by me: 08/04/19 08/04/19 13:51 13:51 WBC 12.5 H Lymph % (Auto) 7.5 L Absolute Neuts (auto) 10.7 H Seg Neutrophils % 85.8 H Urine Protein 30 H Urine Blood SMALL H Leukocyte Esterase Rfl LARGE H Discharge - Discharge Clinical Impression: Urinary tract infection Qualifiers: Urinary tract infection type: acute cystitis Hematuria presence: with hematuria Qualified Code(s): N30.01 - Acute cystitis with hematuria Condition: Stable Disposition: HOME, SELF-CARE Instructions: Cephalexin ([facility]), Urinary Tract Infection ([facility]) Additional Instructions: Your urine shows findings consistent with a urinary tract infection. Please take all the antibiotics as directed even if your symptoms have improved. Please follow-up with your primary care physician . Return to emergency room if you develop fever >101F, persistent vomiting, become lethargic, have severe pain in your sides, or any other symptoms that are concerning to you. Prescriptions: Cephalexin [Keflex] 500 mg PO BID #14 capsule Forms: Return to Work
== END 2019-08-04 15:10 | disposition home or self-care (01) ==
LOC: ER 12:57
DX: N30.01 Acute cystitis with hematuria (principal); R10.9 Unspecified abdominal pain; D72.829 Elevated white blood cell count, unspecified
CPT/HCPCS: 99284; 96361; 96374; 36415; 87086; 84703; 85025; 87088; 80053; 81001; J1885; J7030; 87186